=== PATIENT | female | born 1980 | race Caucasian/White ===

== ENCOUNTER 2020-01-11 17:12 | Emergency (ER) | payer OTHER ==
[2020-01-11 17:51] VITALS: BP 120/89; TEMP 97.8; BMI 24.5
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
[2020-01-11 18:01] VITALS: PULSE 90
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
== END 2020-01-11 20:16 | disposition home or self-care (01) ==
LOC: JERFT 17:12
DX: S09.8XXA Other specified injuries of head, initial encounter (principal); S16.1XXA Strain of muscle, fascia and tendon at neck level, initial encounter; S63.501A Unspecified sprain of right wrist, initial encounter; V03.10XA Pedestrian on foot injured in collision with car, pick-up truck or van in traffic accident, initial encounter; Y92.414 Local residential or business street as the place of occurrence of the external cause; Y93.89 Activity, other specified; Y99.8 Other external cause status
CPT/HCPCS: 70450-TC; 72125-TC; 73110-TC-RT-FY; 99284-25